=== PATIENT | male | born 1970 | race Caucasian/White ===

== ENCOUNTER 2020-06-21 22:14 | Emergency (ER) | payer OTHER ==
[~2020-06-21] VITALS: Ht 177.8 cm; Wt 104.5 kg
[2020-06-21 22:21] VITALS: TEMP 97.3
[2020-06-21 23:42] VITALS: BP 138/86; PULSE 89
== END 2020-06-21 23:42 | disposition home or self-care (01) ==
LOC: COL.ER 22:14
DX: Z00.00 Encounter for general adult medical examination without abnormal findings (principal)